=== PATIENT | female | born 1980 | race Caucasian/White ===

== ENCOUNTER → 2019-09-23 | Outpatient (CLI) | payer OTHER ==
[~2019-09-23] MED LIST: ACET500 PO; CODACE30 PO; HYDACE5 PO; IBUP800; MULVITMINE PO; NAPR500 PO; NO MEDS; OTC COLD MEDS; Percocet 5-3251 EACH; RXHYDACE PO; RXNAPNA550 PO
== END | disposition home or self-care (01) ==
LOC: LAB SHORT 18:24 → LAB 18:24
PROVIDERS: Nurse Practitioner Family
DX: Z01.419 Encounter for gynecological examination (general) (routine) without abnormal findings (principal)
CPT/HCPCS: G0123